=== PATIENT | female | born 1970 | race Caucasian/White ===

== ENCOUNTER → 2020-06-14 14:09 | Outpatient (CLI) | payer SELFPAY ==
--- NOTE | 2020-06-14 14:13 | DI.US.S_ITS ---
PROCEDURE: US PELVIC COMPLETE INDICATIONS: pmb TECHNIQUE: Real-time scanning was performed of the pelvic organs, with image documentation. Additional endovaginal scanning was necessary due to incomplete visualization of the adnexal and endometrial structures by transabdominal scanning. COMPARISON: None. FINDINGS: Uterus: Uterus is normal in size at 8.2 x 8.6 x 12.5 cm, anteverted. The endometrium measures 6.0 mm in combined thickness. Scattered uterine fibroids are present mildly enlarging the uterus overall measuring up to 3.7 x 4.7 x 4.2 cm on the right anteriorly in the intramural space; on the left anteriorly in the intramural space there is a 2.1 x 2.0 x 2.5 cm fibroid; and on the left posteriorly in the intramural space there is a 1.2 x 2.6 x 2.3 cm fibroid Ovaries: Not seen due to overlying bowel gas. Other: No pathologic free abdominal or pelvic fluid. IMPRESSION: Uterine fibroids are present enlarging the uterus to a moderate degree. The largest fibroid identified measures up to 4.7 cm in maximal dimension on the right anteriorly. No endometrial mass is found. Nonvisualization of the ovaries due to overlying bowel gas. Dictated by: Miguel Angel Talbot M.D. on 06/16/2020 at 12:17 Approved by: Miguel Angel Talbot M.D. on 06/16/2020 at 12:20
== END ==
PROVIDERS: PCP Family Medicine; Referring Provider Specialist; Visit Provider Specialist
DX: N95.0 Postmenopausal bleeding (principal); D25.1 Intramural leiomyoma of uterus; N85.2 Hypertrophy of uterus
CPT/HCPCS: 76830; 76856